=== PATIENT | female | born 1955 | race Caucasian/White ===

== ENCOUNTER 2018-04-23 03:31 | Emergency (ER) | payer BC ==
--- NOTE | 2018-04-23 03:43 | PDOC ---
History of Present Illness - General Chief Complaint: Pain Stated Complaint: ABDOMINAL PAIN Time Seen by Provider: 04/23/18 03:43 History Source: Patient Exam Limitations: No Limitations Past History - Travel Traveled outside of the country in the last 30 days: No Close contact w/someone who was outside of country & ill: No - Past Medical History Allergies/Adverse Reactions: Allergies Allergy/AdvReac Type Severity Reaction Status Date / Time No Known Allergies Allergy Verified 04/23/18 03:54 Home Medications: Ambulatory Orders Cholecalciferol (Vitamin D3) [Vitamin D3 -] 1,000 unit PO DAILY 07/13/11 Zolpidem Tartrate [Ambien] 10 mg PO HS PRN 07/13/11 Acetaminophen [Tylenol .Regular Strength -] 650 mg PO Q4H PRN #0 tablet Biotin [Nail-Ex] 2,500 mcg PO DAILY #0 07/17/11 Fluoxetine HCl [Prozac -] 20 mg PO DAILY #0 07/17/11 Losartan Potassium 25 mg PO DAILY #0 07/17/11 Rosuvastatin Calcium [Crestor] 5 mg PO DAILY #0 07/17/11 Anemia: No Asthma: No Cancer: No Cardiac Disorders: No CVA: No COPD: No CHF: No Dementia: No Diabetes: No GI Disorders: No Disorders: No HTN: Yes Hypercholesterolemia: Yes Liver Disease: No Seizures: No Thyroid Disease: No - Surgical History Abdominal Surgery: No Appendectomy: No Cardiac Surgery: No Cholecystectomy: No Lung Surgery: No Neurologic Surgery: No Orthopedic Surgery: No - Suicide/Smoking/Psychosocial Hx Smoking History: Former smoker Have you smoked in the past 12 months: No If you are a former smoker, when did you quit?: 20YRS AGO Hx Alcohol Use: Yes (SOCIALLY) Substance Use Type: None Review of Systems - Review of Systems Constitutional: No: Symptoms Reported, See HPI, Chills, Diaphoresis, Fever, Loss of Appetite, Malaise, Night Sweats, Weakness, Weight Stable, Unintentional Wgt. Loss, Unexplained wgt Loss, Other HEENTM: No: Symptoms Reported, See HPI, Eye Pain, Blurred Vision, Tearing, Recent change in vision, Double Vision, Cataracts, Ear Pain, Ocular Prothesis, Ear Discharge, Nose Pain, Nose Congestion, Tinnitus, Nose Bleeding, Hearing Loss , Throat Pain, Throat Swelling, Mouth Pain, Dental Problems, Difficulty Swallowing, Mouth Swelling, Other Respiratory: No: Symptoms reported, See HPI, Cough, Orthopnea, Shortness of Breath, SOB with Exertion, SOB at Rest, Stridor, Wheezing, Productive cough, Hemoptysis, Other Cardiac (ROS): No: Symptoms Reported, See HPI, Chest Pain, Edema, Irregular Heart Rate, Lightheadedness, Palpitations, Syncope, Chest Tightness, Other ABD/GI: Yes: Other (lower abdomen bloating). No: Symptoms Reported, See HPI, Abdominal Distended, Abd. Pain w/ defecation, Blood Streaked Bowels, Constipated , Diarrhea, Difficulty Swallowing, Nausea, Poor Appetite, Poor Fluid Intake, Rectal Bleeding, Vomiting, Indigestion, Abdominal cramping, Tarry Stools : No: Symptoms Reported, See HPI, Burning, Dysuria, Discharge, Frequency, Flank Pain, Hematuria, Incontinence, Pain, Urgency, Testicular Mass, Testicular Swelling, Lesions, Testicular Pain, Other Musculoskeletal: No: Symptoms Reported, See HPI, Back Pain, Gout, Joint Pain, Joint Swelling, Muscle Pain, Muscle Weakness, Neck Pain, Joint Stiffness, Other Integumentary: No: Symptoms Reported, See HPI, Bruising, Change in Color, Change in Hair/Nails, Dryness, Erythema, Flushing, Lesions, Lumps, Pallor, Pruritus, Rash, Sweating, Other Neurological: No: Symptoms reported, See HPI, Headache, Numbness, Paresthesia, Pre-Existing Deficit, Seizure, Tingling, Tremors, Weakness, Unsteady Gait, Ataxia, Dizziness, Other *Physical Exam - Physical Exam General Appearance: Yes: Nourished, Appropriately Dressed, Mild Distress. No: Apparent Distress HEENT: positive: EOMI, FRANCINE, Normal ENT Inspection, Normal Voice, Symmetrical, TMs Normal, Pharynx Normal Neck: positive: Trachea midline, Supple Respiratory/Chest: positive: Normal Breath Sounds. negative: Chest Tender Cardiovascular: positive: Regular Rhythm, Regular Rate, S1, S2 Gastrointestinal/Abdominal: positive: Normal Bowel Sounds, Tender, Soft, Tenderness (lower abdominal pain). negative: Organomegaly, Increased Bowel Sounds, Decreased BS Musculoskeletal: positive: Normal Inspection, CVA Tenderness Extremity: positive: Normal Capillary Refill, Normal Inspection, Tender, Pelvis Stable Integumentary: positive: Normal Color, Dry, Warm Neurologic: positive: band builder II-XII NML intact, Fully Oriented, Alert, Normal Mood/ Affect, Normal Response, Motor Strength 07/08 Medical Decision Making - Medical Decision Making 04/23/18 05:54 Pt has been taking dulcolax and miralax and now she has diarrhea and her bloating (which she originally took the meds for) is worse. Pt is anxious and she feels unwell and states that she has had nothing to eat in 2 days and shefeels like she is losing weight. She has normal exam and she appears well and she has no abd tenderness. 04/23/18 05:56 Labs pending Pt has abd XR pending *DC/Admit/Observation/Transfer - Referrals Referrals: Manuelito Escalona MD [Primary Care Provider] - - Patient Instructions - Post Discharge Activity
[2018-04-23 03:54] VITALS: BP 157/88; PULSE 92; TEMP 98; BMI 23.3
[2018-04-23] MEDS ORDERED: SODIUM CHLORIDE 0.9% 500 ML INFUS.BAG IV ONE (04:54)
[2018-04-23] MEDS ORDERED: FAMOTIDINE 20 MG/50 ML IVPB 20 MG/50 ML MG IVPB ONE (05:46)
[2018-04-23] MEDS ORDERED: MAG HYDROX/AL HYDROX/SIMETH 30 ML UNIT-DOSE CUP PO ONE (05:46)
[2018-04-23] MEDS ORDERED: MAG HYDROX/AL HYDROX/SIMETH 30 ML UNIT-DOSE CUP ONE (05:54)
[2018-04-23 06:21] LABS: HEMOGLOBIN 14.3 GM/dL (10.7-15.3); RBC 4.79 M/mm3 (3.60-5.2); WHITE BLOOD COUNT 8.1 K/mm3 (4.0-10.0)
[2018-04-23 06:22] LABS: BASO % 0.3 % (0-2.0); EOS % 1.4 % (0-4.5); HEMATOCRIT 41.4 % (32.4-45.2); LYMPH % 17.7 % (8-40); MCH 29.8 pg (25.7-33.7); MCHC 34.5 g/dl (32.0-36.0); MEAN CELL VOLUME 86.3 fl (80-96); MEAN PLT VOLUME 8.3 fl (7.5-11.1); MONO % 7.1 % (3.8-10.2); NEUT % 73.5 % (42.8-82.8); PLATELET COUNT 365 K/MM3 (134-434)
[2018-04-23 07:11] LABS: ALK PHOS 81 U/L (45-117); ANION GAP 10 MMOL/L (8-16); BILIRUBIN,TOTAL 0.4 mg/dL (0.2-1); BLOOD UREA NITROGEN 10 mg/dL (7-18); CALCIUM 9.6 mg/dL (8.5-10.1); CHLORIDE 98 mmol/L (98-107); CO2 30 mmol/L (21-32); CREATININE 0.7 mg/dL (0.55-1.3); GLUCOSE,RANDOM 108 mg/dL (74-106); POTASSIUM 3.9 mmol/L (3.5-5.1); SGOT/AST 11 U/L (15-37); SGPT/ALT 17 U/L (13-61); SODIUM 138 mmol/L (136-145); TOT PROT 7.5 g/dl (6.4-8.2)
--- NOTE | 2018-04-23 07:26 | PDOC ---
*Physical Exam - Vital Signs Last Vital Signs Temp Pulse Resp BP Pulse Ox 98.0 F 92 H 16 157/88 100 04/23/18 03:32 04/23/18 03:32 04/23/18 03:32 04/23/18 03:32 04/23/18 04:08 <Wendie Ferrer - Last Filed: 04/23/18 07:42> - Vital Signs Last Vital Signs Temp Pulse Resp BP Pulse Ox 98.0 F 92 H 16 157/88 100 04/23/18 03:32 04/23/18 03:32 04/23/18 03:32 04/23/18 03:32 04/23/18 04:08 - Physical Exam Comments: 04/23/18 07:56 unremarkable exam <Sybil Valencia - Last Filed: 04/23/18 08:49> ED Treatment Course - LABORATORY CBC & Chemistry Diagram: 04/23/18 05:07 04/23/18 04:53 - ADDITIONAL ORDERS Additional order review: Laboratory Results 04/23/18 04:53 Sodium 138 Potassium 3.9 Chloride 98 Carbon Dioxide 30 Anion Gap 10 BUN 10 Creatinine 0.7 Creat Clearance w eGFR > 60 Random Glucose 108 H Calcium 9.6 Total Bilirubin 0.4 AST 11 L ALT 17 Alkaline Phosphatase 81 Total Protein 7.5 Albumin 4.0 04/23/18 05:07 RBC 4.79 MCV 86.3 MCHC 34.5 RDW 12.0 MPV 8.3 Neutrophils % 73.5 Lymphocytes % 17.7 D Monocytes % 7.1 Eosinophils % 1.4 Basophils % 0.3 - RADIOLOGY Radiology Studies Ordered: Category Date Time Status ABDOMEN FLAT & UPRIGHT [RAD] Stat Radiology 04/23/18 05:54 Taken - Medications Given in the ED: ED Medications Discontinued Medications Generic Name Dose Route Start Last Admin Trade Name Freq PRN Reason Stop Dose Admin Al Hydroxide/Mg Hydroxide 30 ml 04/23/18 05:46 04/23/18 05:57 Mylanta Oral Suspension - PO 04/23/18 05:47 30 ml ONCE ONE Administration Famotidine/Sodium Chloride 20 mg in 50 mls @ 100 mls/hr 04/23/18 05:46 06:39 Pepcid 20 Mg Premixed Ivpb - IVPB 04/23/18 06:15 100 mls/hr ONCE ONE Administration Sodium Chloride 1,000 ml 04/23/18 04:54 04/23/18 05:14 Normal Saline - IV 04/23/18 04:55 1,000 ml ONCE ONE Administration <Wendie Ferrer - Last Filed: 04/23/18 07:42> - LABORATORY CBC & Chemistry Diagram: 04/23/18 05:07 04/23/18 04:53 - ADDITIONAL ORDERS Additional order review: Laboratory Results 04/23/18 04:53 Sodium 138 Potassium 3.9 Chloride 98 Carbon Dioxide 30 Anion Gap 10 BUN 10 Creatinine 0.7 Creat Clearance w eGFR > 60 Random Glucose 108 H Calcium 9.6 Total Bilirubin 0.4 AST 11 L ALT 17 Alkaline Phosphatase 81 Total Protein 7.5 Albumin 4.0 04/23/18 05:07 RBC 4.79 MCV 86.3 MCHC 34.5 RDW 12.0 MPV 8.3 Neutrophils % 73.5 Lymphocytes % 17.7 D Monocytes % 7.1 Eosinophils % 1.4 Basophils % 0.3 - Medications Given in the ED: ED Medications Discontinued Medications Generic Name Dose Route Start Last Admin Trade Name Freq PRN Reason Stop Dose Admin Al Hydroxide/Mg Hydroxide 30 ml 04/23/18 05:46 04/23/18 05:57 Mylanta Oral Suspension - PO 04/23/18 05:47 30 ml ONCE ONE Administration Famotidine/Sodium Chloride 20 mg in 50 mls @ 100 mls/hr 04/23/18 05:46 06:39 Pepcid 20 Mg Premixed Ivpb - IVPB 04/23/18 06:15 100 mls/hr ONCE ONE Administration Sodium Chloride 1,000 ml 04/23/18 04:54 04/23/18 05:14 Normal Saline - IV 04/23/18 04:55 1,000 ml ONCE ONE Administration <Sybil Valencia - Last Filed: 04/23/18 08:49> Medical Decision Making - Medical Decision Making 04/23/18 07:42 All lbas normal; XR normal. Pt signed out to the day team to discharge patient with a plan for bloating <Wendie Ferrer - Last Filed: 04/23/18 07:42> - Medical Decision Making 04/23/18 07:27 Patient signed out by overnight team In short ED Course: labwork wnl <Sybil Valencia - Last Filed: 04/23/18 08:49> *DC/Admit/Observation/Transfer <Wendie Ferrer - Last Filed: 04/23/18 07:42> - Discharge Dispostion Decision to Admit order: No <Sybil Valencia - Last Filed: 04/23/18 08:49> Diagnosis at time of Disposition: Bloating, Unspecified abdominal pain - Discharge Dispostion Disposition: HOME Condition at time of disposition: Stable - Prescriptions Prescriptions: Acetaminophen [Tylenol] 650 mg PO PRN #30 capsule Metoclopramide HCl [Reglan -] 10 mg PO Q6H PRN #30 tablet PRN Reason: Mild Pain Polyethylene Glycol 3350 [Miralax (For Bowel Prep) -] 30 ml PO Q6H PRN #1 bottle PRN Reason: Mild Pain - Referrals Referrals: Manuelito Escalona MD [Primary Care Provider] - David Colindres MD [Staff Physician] - - Patient Instructions Printed Discharge Instructions: DI for Abdominal Pain-Adult Additional Instructions: You were seen in the ED for abdominal pain and bloating. You were evaluated with labwork and imaging. Your results did not show significant findings. There does not appear to be an immediate need for hospitalization. You have been prescribed medications to help with your pain and bloating including Reglan, Tylenol, Miralax. Please take these medications as directed. Return to the ED if you experience worsening abdominal pain, fevers, blood in the stool, blood in the urine, burning with urination, inability to pass gas or stool, chest pain, shortness of breath, nausea or vomiting. - Post Discharge Activity
[2018-04-23 09:02] LABS: URINE APPEARANCE CLEAR; URINE BILIRUBIN NEGATIVE (<2.0 mg/dL); URINE COLOR YELLOW; URINE GLUCOSE (UA) NEGATIVE (NEGATIVE); URINE KETONE TRACE (NEGATIVE); URINE LEUK ESTERASE TRACE (NEGATIVE); URINE NITRITE NEGATIVE (NEGATIVE); URINE PROTEIN NEGATIVE (NEGATIVE); URINE UROBILINOGEN NEGATIVE mg/dL (0.2-1.0)
[2018-04-23 09:38] LABS: CALCIUM OXALATE CRYSTALS RARE /hpf (NONE SEEN); URINE MUCUS FEW
== END 2018-04-23 09:26 | disposition home or self-care (01) ==
LOC: JER 03:31
PROC: 3E033GC Introduction of Other Therapeutic Substance into Peripheral Vein, Percutaneous Approach (ICD-10-PCS; principal; 2018-04-23)
DX: R14.0 Abdominal distension (gaseous) (principal); I10 Essential (primary) hypertension; E78.00 Pure hypercholesterolemia, unspecified
CPT/HCPCS: 36415; 74019-TC-FY; 80053; 81003; 81015; 85025; 99283-25